=== PATIENT | male | born 1970 | race Two or more races ===

== ENCOUNTER 2017-04-12 18:10 | Emergency (ER) | payer OTHER ==
[~2017-04-12] VITALS: Ht 172.7 cm; Wt 99.3 kg
[2017-04-12] MEDS ORDERED: [UNRECOGNIZED DRUG - REMARK] (18:21)
[2017-04-12 18:43] LABS: BASOPHILS % (AUTO) 0.6 % (0.0-2.0); EOSINOPHILS # (AUTO) 0.1 K/uL (0.0-0.7); HEMATOCRIT 49.6 % (40-50); HEMOGLOBIN 16.4 G/DL (14.0-18.0); LYMPHOCYTES # (AUTO) 2.1 K/UL (0.8-4.8); LYMPHOCYTES % (AUTO) 25.5 % (20.5-51.5); MEAN CORPUSCULAR HEMOGLOBIN 29.6 UUG (27.0-31.0); MEAN CORPUSCULAR HGB CONC 33 g/dL (32.0-37.0); MEAN CORPUSCULAR VOLUME 89.4 FL (82.0-92.0); MONOCYTES # (AUTO) 0.5 K/UL (0.1-1.30); MONOCYTES % (AUTO) 6.2 % (0.0-11.0); NEUTROPHILS # (AUTO) 5.5 K/UL (1.8-8.9); NEUTROPHILS % (AUTO) 66.7 % (38.5-71.5); PLATELET COUNT (AUTO) 192 K/UL (150-450); RED BLOOD CELL COUNT(AUTO) 5.54 MIL/UL (4.7-6.1); WHITE BLOOD COUNT (AUTO) 8.2 K/UL (4.0-11.2)
--- NOTE | 2017-04-12 18:53 | NUR ---
Pt states his pain is improved, pt to ct via otis with NAD noted at this time.
[2017-04-12 18:56] LABS: BILIRUBIN,DIRECT 0.1 mg/dL (0.0-0.2); BILIRUBIN,TOTAL 0.5 mg/dL (0.2-1.0); CREATININE 1.2 mg/dL (0.6-1.3); POTASSIUM 3.9 mmol/L (3.5-5.1); TOTAL PROTEIN, SERUM 7.9 g/dL (6.4-8.2)
--- NOTE | 2017-04-12 19:15 | NUR ---
Received report from ANNIE Grubbs. Assumed care of pt at this time. Pt returned from CT via gurney. U/S at bedside.
--- NOTE | 2017-04-12 20:20 | NUR ---
Pt sts he is feeling better. Fluid bolus completed. Pt stable for discharge per Dr. James. IV dc'd, catheter intact, drsg applied. No problems noted to site. Pt given ACI. Pt verbalized understanding of dc instructions. Pt ambulated out of er with steady gait and ride home.
[2017-04-12 20:22] VITALS: BP 173/84
== END 2017-04-12 20:22 | disposition home or self-care (01) ==
LOC: ER 18:10
DX: N20.0 Calculus of kidney (principal); J45.909 Unspecified asthma, uncomplicated; N13.30 Unspecified hydronephrosis
CPT/HCPCS: 36415; 74176; 76705; 80048; 80076; 83690; 85025; 96361; 96374; 96375; 99285; A4663; J1170; J1885; J2405; J7030